=== PATIENT | male | born 1965 | race Two or more races ===

== ENCOUNTER → 2025-07-30 | Outpatient (CLI) | payer OTHER, SELFPAY ==
--- NOTE | 2025-07-30 10:20 | XR_ITS ---
EXAMINATION: PA lateral chest 2 views TECHNIQUE: Upright PA lateral chest 2 views Date and time: July 30, 2025, 1119 hours INDICATIONS: Chronic coughing 21 years. FINDINGS: Normal heart size Lungs are clear. Mild diffuse thoracic degenerative disc disease IMPRESSION: No active disease
--- NOTE | 2025-07-30 10:20 | XR_ITS ---
EXAMINATION: Right knee 2 views TECHNIQUE: AP lateral right knee 2 views Date and time: July 30, 2025, 11:15 a.m. INDICATIONS: Knee pain 5 years FINDINGS: Mild to moderate tricompartment osteoarthritis, most severe lateral patellofemoral joints Small knee effusion No fracture IMPRESSION: Mild to moderate tricompartment osteoarthritis
--- NOTE | 2025-07-30 10:20 | XR_ITS ---
EXAMINATION: Bone length study, scanogram TECHNIQUE: AP hip the ankle films obtained with ruler device 3 views Date and time: 2024, 10:54 a.m. INDICATIONS: Chronic knee pain 5 years, diagnosis osteoarthritis FINDINGS: The right leg is 5 mm shorter than the left leg This relates to 5 mm shorter length of the right femur Mild to moderate bilateral hip osteoarthritis Moderate to advanced knee osteoarthritis IMPRESSION: The right leg is 5 mm shorter than the left leg
== END | disposition home or self-care (01) ==
LOC: SDIM 09:39
PROVIDERS: Referring Provider Orthopaedic Surgery; Visit Provider Orthopaedic Surgery
DX: R05.3 Chronic cough (principal); M17.11 Unilateral primary osteoarthritis, right knee; M89.28 Other disorders of bone development and growth, other site
CPT/HCPCS: 71046; 73560; 77073